=== PATIENT | female | born 1995 | race Caucasian/White ===

== ENCOUNTER 2017-09-15 22:46 | Emergency (ER) | payer BC ==
[~2017-09-15] VITALS: Ht 175.3 cm; Wt 104.0 kg
[2017-09-15 22:50] VITALS: TEMP 36.7
[2017-09-15 23:51] VITALS: Ht 175.3 cm; Wt 104.0 kg
[2017-09-15 23:52] LABS: BASO % 0.4 %; BASO ABS # 0.02 K/uL (0-0.2); EOS % 2.2 %; EOS ABS # 0.11 K/uL (0-0.5); HEMATOCRIT 40.1 % (37-47); HEMOGLOBIN 13.7 g/dL (12.0-16.0); IG# 0.01 K/uL (0.00-0.02); LYMPH % 45.2 %; LYMPH ABS # 2.28 K/uL (1.2-3.4); MEAN CELL VOLUME 90.9 fL (80-100); MEAN CORPUSCULAR HEMOGLOBIN 31.1 pg (25-34); MEAN CORPUSCULAR HGB CONC 34.2 g/dl (32-36); MEAN PLATELET VOLUME 9.6 fL (7.4-10.4); MONO % 8.1 %; MONO ABS # 0.41 K/uL (0.11-0.59); NEUT % 43.9 %; NEUT ABS # 2.21 K/uL (1.4-6.5); PLATELET COUNT 223 K/uL (130-400); RED CELL DISTRIBUTION WIDTH CV 12.3 % (11.5-14.5); WHITE BLOOD COUNT 5.04 K/uL (4.8-10.8)
[2017-09-16] LABS: INR 0.9 (0.9-1.1); PTT PATIENT 36.4 SECONDS (21.0-31.0)
[2017-09-16 00:03] VITALS: O2SAT 99
[2017-09-16 00:09] LABS: CALCIUM 9.3 mg/dl (8.5-10.1); CREATININE 0.76 mg/dl (0.60-1.20); POTASSIUM 3.4 mmol/L (3.5-5.1)
[2017-09-16 00:11] LABS: TOTAL PROTEIN 8.6 gm/dl (6.4-8.2)
[2017-09-16] MEDS ORDERED: ABL/15 PO (00:42)
[2017-09-16] MEDS ORDERED: CLR10 PO (00:42)
[2017-09-16] MEDS ORDERED: LEVOTAB6 PO (00:42)
[2017-09-16] MEDS ORDERED: CLIN1GEL TOP (00:43)
[2017-09-16 01:35] VITALS: BP 139/63; PULSE 98; O2SAT 99
--- NOTE | 2017-09-16 08:13 | DIAGNOSTIC IMAGING REPORT ---
CHEST 2 VIEWS ROUTINE CLINICAL HISTORY: Cough. Congestion. COMPARISON STUDY: No previous studies for comparison. FINDINGS: Lung volumes are normal. No consolidation is identified. There is no pneumothorax or pleural effusion. Cardiac size is normal. Mediastinal contours are normal. There is no evidence for pulmonary edema. IMPRESSION: No acute cardiopulmonary findings. Electronically signed by: Wojciech Gordon M.D. 09/16/2017 8:12 AM Dictated Date/Time: 09/16/2017 8:11 AM
--- NOTE | 2017-09-16 08:13 | EMERGENCY ROOM VISIT NOTE ---
History Report prepared by Jaleel: Maribel Nicholson Under the Supervision of: Dr. Crystal Carver D.O. First contact with patient: 23:02 Chief Complaint: FLU LIKE SX Stated Complaint: FLU, DIZZY, FEET TINGLING, CONFUSION History of Present Illness The patient is a 21 year old female who presents to the Emergency Room with complaints of worsening flu-like symptoms starting this evening. The patient states that she was to [facility] and was diagnosed with Influenza A two days ago. She states that she felt better today, but this evening found it difficult to breathe. She reports that she has been breathing heavily. She reports that she then started to become dizzy, her feet began to tingle, and she felt like she was confused. She states that she states that it is difficult to talk and that she feels like she is weak like she is going to pass out. The patient complains of body aches, fever, cough, and chills. The patient denies abdominal pain and taking Tamiflu. She notes that she has Bipolar Disorder and before getting sick was entering a verna phase. She notes that she is on Abilify. The patient notes that her LNMP was August 14, but that the control she is on has her only have it once every three months. Source of History: patient Onset: this evening Position: other (global) Quality: ache, tingling, other (flu-like) Timing: worsening Associated Symptoms: + fevers, + chills, + cough, + SOB, + weakness, No abdominal pain Note: The patient complains of dizziness, confusion, Review of Systems See HPI for pertinent positives & negatives. A total of 10 systems reviewed and were otherwise negative. Past Medical & Surgical Medical Problems: (1) Bipolar disorder Family History No pertinent family history Social History Smoking Status: Never Smoker Marital Status: single Housing Status: lives with roommate Occupation Status: [employer] Current/Historical Medications Scheduled Aripiprazole (Abilify), 15 MG PO DAILY Clindamycin Phosphate (Topical (Cleocin-T), 1 APPLN TOP DAILY Levonorgestrel-Ethinyl Estradi (Seasonique), 1 TAB PO DAILY Loratadine (Claritin), 10 MG PO DAILY Allergies Coded Allergies: Penicillins (Verified Allergy, Unknown, HIVES, 09/16/17) Physical Exam Vital Signs Date Time Temp Pulse Resp B/P (MAP) Pulse Ox O2 Delivery O2 Flow Rate FiO2 09/16/17 01:35 98 20 139/63 99 09/16/17 00:03 99 Room Air 09/15/17 22:50 36.7 101 18 161/96 99 Room Air Physical Exam General: The patient is hyperventilating. HEENT: Head - normocephalic and atraumatic Pupils are equal, round, and reactive to light. Extraocular eye muscles are intact, and sclera are anicteric. Ear- Normal TMs. Nose - moist nasal mucosa without discharge. Mouth - moist buccal mucosa. Oropharynx is nonerythematous and there is no tonsillar exudate or edema noted. Neck: Supple; no JVD, nuchal rigidity, cervical lymphadenopathy. Heart: Tachycardic rate and regular rhythm. There is a normal S1 and S2 with no murmurs, clicks, or gallops appreciated. Lungs: Clear to auscultation bilaterally with no wheezes, rales, or rhonchi. Abdomen: Soft, completely nontender, nondistended, with good bowel sounds. There are no palpable pulsatile masses or hepatosplenomegaly. There is no guarding, rigidity, or rebound noted. Extremities: No evidence of cyanosis, clubbing, or edema. There are easily palpable peripheral pulses. Skin: warm and dry with good turgor and no rashes. Medical Decision & Procedures ER Provider Diagnostic Interpretation: CHEST X-RAY: The results were interpreted by me. No obvious pulmonary infiltrates. No pneumothorax. No pleural effusion. Laboratory Results 09/15/17 23:42 Red Blood Count 4.41, Mean Corpuscular Volume 90.9, Mean Corpuscular Hemoglobin 31.1, Mean Corpuscular Hemoglobin Concent 34.2, Mean Platelet Volume 9.6, Neutrophils (%) (Auto) 43.9, Lymphocytes (%) (Auto) 45.2, Monocytes (%) (Auto) 8.1, Eosinophils (%) (Auto) 2.2, Basophils (%) (Auto) 0.4, Neutrophils # (Auto) 2.21, Lymphocytes # (Auto) 2.28, Monocytes # (Auto) 0.41, Eosinophils # (Auto) 0.11, Basophils # (Auto) 0.02 09/15/17 23:42 Test 09/15/17 23:42 09/15/17 23:46 White Blood Count 5.04 K/uL (4.8-10.8) Red Blood Count 4.41 M/uL (4.2-5.4) Hemoglobin 13.7 g/dL (12.0-16.0) Hematocrit 40.1 % (37-47) Mean Corpuscular Volume 90.9 fL (80-100) Mean Corpuscular Hemoglobin 31.1 pg (25-34) Mean Corpuscular Hemoglobin Concent 34.2 g/dl (32-36) Platelet Count 223 K/uL (130-400) Mean Platelet Volume 9.6 fL (7.4-10.4) Neutrophils (%) (Auto) 43.9 % Lymphocytes (%) (Auto) 45.2 % Monocytes (%) (Auto) 8.1 % Eosinophils (%) (Auto) 2.2 % Basophils (%) (Auto) 0.4 % Neutrophils # (Auto) 2.21 K/uL (1.4-6.5) Lymphocytes # (Auto) 2.28 K/uL (1.2-3.4) Monocytes # (Auto) 0.41 K/uL (0.11-0.59) Eosinophils # (Auto) 0.11 K/uL (0-0.5) Basophils # (Auto) 0.02 K/uL (0-0.2) RDW Standard Deviation 41.0 fL (36.4-46.3) RDW Coefficient of Variation 12.3 % (11.5-14.5) Immature Granulocyte % (Auto) 0.2 % Immature Granulocyte # (Auto) 0.01 K/uL (0.00-0.02) Prothrombin Time 9.9 SECONDS (9.0-12.0) Prothromb Time International Ratio 0.9 (0.9-1.1) Activated Partial Thromboplast Time 36.4 SECONDS (21.0-31.0) Partial Thromboplastin Ratio 1.4 Anion Gap 7.0 mmol/L (3-11) Est Creatinine Clear Calc Drug Dose 150.4 ml/min Estimated GFR () 130.0 Estimated GFR (Non- 112.1 BUN/Creatinine Ratio 8.2 (10-20) Calcium Level 9.3 mg/dl (8.5-10.1) Total Bilirubin 0.3 mg/dl (0.2-1) Aspartate Amino Transf (AST/SGOT) 17 U/L (15-37) Alanine Aminotransferase (ALT/SGPT) 19 U/L (12-78) Alkaline Phosphatase 69 U/L (45-117) Total Protein 8.6 gm/dl (6.4-8.2) Albumin 4.0 gm/dl (3.4-5.0) Globulin 4.6 gm/dl (2.5-4.0) Albumin/Globulin Ratio 0.9 (0.9-2) Bedside Lactic Acid Venous 1.02 mmol/L (0.90-1.70) Laboratory results per my review. ED Course 2314: Past medical records reviewed. The patient was evaluated in room B12A. A complete history and physical exam was performed. An IV lock was initiated and labs are drones above. Chest x-ray was obtained as described above. 0123: Upon reevaluation, the patient is doing well. When I entered the room the patient's heart rate on the monitor was 82 and when I started to talk it went up to 110. I discussed findings and results with her. She verbalized agreement of the treatment plan. The patient was discharged home. Medical Decision The patient is a 21 year old female who presents to the Emergency Room with complaints of worsening flu-like symptoms starting this evening. Differential diagnoses include pneumonia, bronchitis, influenza, anxiety, verna , substance abuse. LABS: White Count 5.0 Stable H&H Lactic Acid 1 Normal renal function Normal glucose Sodium 135 Potassium 4.4 this is a 21-year-old female patient who presents to the emergency department with worsening flulike symptoms and shortness of breath. The patient had a previous positive diagnosis and notes that the breathing seems to be getting worse. On physical exam, the patient is obviously hyperventilating. I believe this is contributing to her dizziness, numbness and tingling in her hands and feet, and inability to catch her breath. Once the patient was instructed to relax and breathe normally, the symptoms seemed to subside. Once the patient was able to breathe more slowly and normally, some of her symptoms subsided. Medication Reconcilliation Current Medication List: was personally reviewed by me Blood Pressure Screening Patient's blood pressure: Elevated blood pressure Blood pressure disposition: Elevated BP felt to be situational Impression Primary Impression: Influenza A Additional Impression: Hyperventilation Scribe Attestation The scribe's documentation has been prepared under my direction and personally reviewed by me in its entirety. I confirm that the note above accurately reflects all work, treatment, procedures, and medical decision making performed by me. Departure Information Dispostion Home / Self-Care Referrals No Doctor, Assigned (PCP) Forms HOME CARE DOCUMENTATION FORM, IMPORTANT VISIT INFORMATION Patient Instructions My [facility] Additional Instructions Rest. Take plenty of clear liquids Return to the ED for worsening breathing Follow up at [facility] if fever continues Problem Qualifiers
== END 2017-09-16 01:48 | disposition home or self-care (01) ==
LOC: C.EDB 22:50
DX: J10.1 Influenza due to other identified influenza virus with other respiratory manifestations (principal); R06.4 Hyperventilation; F31.9 Bipolar disorder, unspecified; Z79.899 Other long term (current) drug therapy